=== PATIENT | male | born 1970 | race Caucasian/White ===

== ENCOUNTER → 2022-04-22 | Outpatient (CLI) | payer BC ==
[~2022-04-22] MED LIST: KEFLEX500 MG PO
== END | disposition home or self-care (01) ==
LOC: CARD 04-21 10:30
PROVIDERS: ATTEND Internal Medicine
DX: I49.3 Ventricular premature depolarization (principal); I49.1 Atrial premature depolarization; R93.1 Abnormal findings on diagnostic imaging of heart and coronary circulation

== ENCOUNTER → 2024-03-31 | Outpatient (CLI) | payer BC | END | disposition home or self-care (01) | LOC: US 03:22 | PROVIDERS: ATTEND Internal Medicine | DX: M79.89 Other specified soft tissue disorders (principal) ==